=== PATIENT | female | born 2005 ===

== ENCOUNTER 2025-03-12 09:38 | Inpatient (IN) | payer OTHER ==
[~2025-03-12] VITALS: Ht 157.5 cm; Wt 95.0 kg
[2025-03-12 12:14] VITALS: BP 117/89
[2025-03-12] MEDS ORDERED: RISP2 PO (12:30)
[2025-03-12 12:32] VITALS: BP 117/89
--- NOTE | 2025-03-12 13:07 | NUR ---
UPDATE PT HAS FLAT AFFECT, AND SPEAKS W/ SOFT TONE; POVERTY OF CONTENT. PT DENIES SI, HI, AVTH AT THIS TIME. STATED THAT OVERDOSE ATTEMPT WAS D/T CHRONIC "SPINE PAIN", BUT DENIES ANY AT THIS TIME. WHEN ASKED ABOUT PT'S SUBDUED MOOD, PT STATES, "I'M FINE" PT ENDORSES LOWERED MOOD D/T NOT WANTING TO BE HERE.
[2025-03-12] MEDS ORDERED: FLU VACC TS2025-26(6MOS UP)/PF 45 MCG/0.5 ML SYRINGE IM SCH (13:35)
[2025-03-12] MEDS ORDERED: Ondansetron 4 MG SoluTab MM PRN (13:35)
[2025-03-12] MEDS ORDERED: Polyethylene Glycol 3350 17 gm PO PRN (13:35)
[2025-03-12] MEDS ORDERED: Aluminum Hydroxide 320MG/5ML 473 ML PO PRN (13:40)
--- NOTE | 2025-03-12 16:56 | NUR ---
SHIFT SUMMARY NO ACUTE EVENTS SINCE PREVIOUS NOTE. PT HAS BEEN PACING, SITTING IN DAYROOM, OR RESTING IN ROOM QUIETLY.
[2025-03-12 19:33] VITALS: BP 135/86
--- NOTE | 2025-03-13 04:52 | NUR ---
SHIFT SUMMARY: PATIENT WAS STANDING QUIETLY IN THE [place] AT THE BEGINNING OF THE SHIFT. PATIENT IS A 20 YEAR OLD WHO IDENTIFIES HE/HIM OR THEY/THEM, BORN FEMALE. HE IS HERE INVOLUNTARILY, ADMITTED ON 03/12/25 FOR SUICIDAL IDEATION WITH ATTEMPT BY OVERDOSE OF BELA. HIS HOLD IS UP 03/18/25. HE PRESENTED BLUNTED AND SHY BUT AGREED TO TALK WITH RN IN SENSORY ROOM. HE ANSWERED ASSESSMENT QUESTIONS AND ADMISSION WAS ABLE TO BE COMPLETED. SOON HE WAS DONE, HE STOOD UP SUDDENLY AND WALKED OUT OF THE ROOM, GOING TO HIS ROOM. HE DID NOT HAVE ANY EVENING MEDICATIONS, AND HE DECLINED OFFER OF SNACK AND WRAP UP GROUP, CHOOSING TO REMAIN IN BED, WHERE HE WAS NOTED TO BE RESTING WITH EYES CLOSED AND RESPIRATIONS CONFIRMED FOR THE REMAINDER OF THE SHIFT. CONTINUING TO MONITOR FOR SAFETY WITH Q15 MINUTE CHECKS.
[2025-03-13 08:08] LABS: CHOL/HDL RATIO 3.3; Cholesterol 150 mg/dL (50-200); HDL Cholesterol 45 mg/dL (>39); LDL/HDL RATIO 1.8; Low Density Lipoprotein Chol 82 mg/dL (0-110); Triglycerides 116 mg/dL (30-140); Very Low Density Lipoprot Chol 23 mg/dL (6-28)
[2025-03-13 08:50] VITALS: BP 139/103
[2025-03-13] MEDS ORDERED: Multivitamins 1 Tab PO SCH (09:00)
--- NOTE | 2025-03-13 16:46 | NUR ---
SHIFT SUMMARY PT DENIES SI, HI, AVTH AT THIS TIME. PT HAS BEEN ISOLATING AND ONLY INTERACTS W/ STAFF WHEN MAKING REQUESTS, OTHERWISE PACES, RESTS QUIETLY IN ROOM, OR IN DAYROOM. PT ATTENDED MEALS AND GROUPS. PT DURING PHONECALL TODAY FOUND OUT THEIR CAT AND HAS BEEN TEARFUL, HYDROXYZINE GIVEN PER EMAR. NO OTHER ACUTE EVENTS AT THIS TIME.
[2025-03-13 19:17] VITALS: BP 131/84
--- NOTE | 2025-03-14 04:36 | NUR ---
SHIFT SUMMARY PATIENT IN BED RESTING LISTENING TO MUSIC WITH HEADPHONE. POOR EYE CONTACT, ANSWERING QUESTIONS WITH SHORT 1-2 WORD STATEMENTS WITH FLAT AFFECT. DENIES SI, HI, OR AVTH. NEEDING A LOT OF ENCOURAGEMENT TO GET UP FOR HS MEDICATION AND SNACK, MELATONIN GIVEN FOR SLEEP WITH HS MEDICATIONS. PATIENT BACK TO BED AFTER SNACK, HEADPHONES REMOVED AT APROX 2130 FOR SLEEP. AT 0200 PATIENT UP TO NURSES DESK ASKING FOR MUSIC, PATIENT REMINDED THAT SHE CAN NOT SLEEP WITH HEADPHONES DUE TO RISK OF THEM BEING DAMAGED, PATIENT RETURNED TO ROOM AND APPEARS TO BE SLEEPING WELL WITH RESP EVEN AND UNLABORED. CONTINUE TO MONITOR Q15MIN. PRN MEDICATIONS GIVEN THIS SHIFT/ MELATONIN
[2025-03-14 08:37] VITALS: BP 121/89
--- NOTE | 2025-03-14 12:27 | NUR ---
603-W MID SHIFT SUMMARY PT WOKE EASILY FOR BREAKFAST THIS SHIFT, THEY STATED THEY SLEPT VERY WELL, SHE IS ALERT AND ORIENTED WITH LIMITED EYE CONTACT TODAY. SPEECH IS SOFT BUT UNDERSTANDABLE, POOR GROOMING. AM REPORT STATED PT HAD A SHOWER YESTERDAY BUT THAT SHE CLEARLY DID NOT WASH HER HAIR. AT 1130 PT IS IN THE SHOWER AND SHE VERBALLY STATED THAT SHE IS TO USE THE SHAMPOO AND CONDITIONER TO WASH HER HAIR. SHE IS CONSITANTLY REQUESTING TO USE THE HEADPHONES AND UNDERSTANDS SHE HAS TO ATTEND GROUPS AND SHOWER BEFORE SHE CAN GET THE HEADPHONES. SHE HAS DENIED SI/HI/AVH. PT HAS RECEIVED Q15 MIN VISUAL SAFETY CHECKS THROUGHOUT THE FIRST HALF OF THIS SHIFT, PT CARE FOR THIS RN FROM [phone].
--- NOTE | 2025-03-14 13:17 | NUR ---
ASSUMPTION OF CARE ASSUMED CARE OF PATIENT FROM [place] [id number]. THEY CURRENTLY ATTENDING GROUP. THEY HAVE NOT RECEIVED ANY PRN MEDICATIONS PRIOR IN THE SHIFT.
--- NOTE | 2025-03-14 15:46 | NUR ---
END OF SHIFT SUMMARY SINCE THIS GLYCERIN OPERATOR ASSUMED CARE AT 1300, NO PRN MEDICATIONS WERE UTILIZED. PATIENT DOES NOT SEEM TO BE IN ANY ACUTE DISTRESS. THEY HAVE BEEN COMPLIANT WITH CARE AND ATTENDED MEALS AND SOME GROUP ACTIVITIES.
[2025-03-14 19:07] VITALS: BP 145/102
--- NOTE | 2025-03-15 00:12 | NUR ---
MID-SHIFT SUMMARY 20 YEAR-OLD NON-BINARY PRESENTS WELL GROOMED. THEY ARE ALERT AND ORIENTED. THEY SPEAK IN A CLEAR VOICE AND IN A SOFT VOLUME. THEY ARE UNABLE TO MAKE EYE CONTACT AND ARE WITHDRAWN DURING CONVERSATIONS. AT THE TIME OF THEIR ASSESSMENT, THEY DESCRIBED THEIR MOOD PRETTY CHILL. THEY ALSO DENIED SI, HI, AND AVTH AT THAT TIME. THEY DID NOT ATTEND ANY COMMUNAL FUNCTIONS THIS SHIFT. THEY WERE COMPLIANT WITH CARE AND MEDICATION ADMINISTRATION. THEY RECEIVED THE FOLLOWING PRN MEDICATIONS: MELATONIN 3MG FOR SLEEP AT 2008. THEY CONTINUE TO BE MONITORED EVERY 15 MINUTES FOR WELLNESS AND SAFETY.
--- NOTE | 2025-03-15 00:13 | NUR ---
PRN NOTE PATIENT RECEIVED THE FOLLOWING PRN MEDICATIONS DURING DIRECTOR PRODUCT DEVELOPMENT: MELATONIN 3MG FOR SLEEP AT 2008.
--- NOTE | 2025-03-15 00:59 | NUR ---
Assumed care of patient at 0055. patient currently sleeping with even respirations. Will continue close monitoring every 15 minutes for safety and comfort per unit protocol.
--- NOTE | 2025-03-15 06:16 | NUR ---
NO CHANGES SINCE ASSUMPTION OF CARE AT 0055. PATIENT HAS SLEPT SINCE APPROXIMATELY 2130 UNTIL NOW. pLEASE SEE MID SHIFT SUMMARY FOR DETAILS. WILL CONTINUE CLOSE OBSERVATION EVERY 15 MINUTES FOR COMFORT AND SAFETY PER UNIT STANDARDS.
[2025-03-15 08:05] VITALS: BP 130/88
--- NOTE | 2025-03-15 17:13 | NUR ---
SHIFT SUMMARY PT A/O X2-3 AND COOPERATIVE WITH CARE. HE IS NON-BINARY AND USES HE/HIM PRONOUNS. HE DENIES SI, HI, AVTH. PT'S AFFECT IS BLUNT AND THEIR SPEECH IS QUIET. PT IS GUARDED AND GIVEN SHORT ANSWERS TO QUESTIONS. PT ENCOURAGED TO SHOWER BUT UNCLEAR IF WASHING HAIR WHEN HE SHOWERS. HAIR APPEARS UNWASHED AND UNKEMPT. HE ATTENDED SOME GROUPS AND MOST MEALS, BUT NOT ALL. PT LIKES TO USE THE HEADPHONES OFTEN, A COPING STRATEGY.
--- NOTE | 2025-03-16 04:29 | NUR ---
Alert and oriented times three with a very quiet and flat affect. She paced the halls with the headphones on, had a snack with her peers. Then after receiving her Risperdone and a PRN Melatonin, she went off to bed and slept well until coming to the desk at 0300 and asking for another Melatonin. This nurse told her it was too late for another sleeping pill, and she went back to bed and fell back to sleep. During evening assessment, patient denied SI,HI and AVTH. Will continue close monitoring every 15 minutes for safety and comfort per unit protocol
[2025-03-16 07:38] VITALS: BP 140/89
--- NOTE | 2025-03-16 17:42 | NUR ---
SHIFT SUMMARY PT DENIES SI, HI, AVTH AT THIS TIME. FLAT/BLUNTED AFFECT AND GUARDED. PT IS ABLE TO MAKE NEEDS KNOWN. PT T/O DAY HAS BEEN PACING THE GASPAR, SITTING IN ROOM, OR IN DAYROOM W/ HEADPHONES. ATTENDED GROUPS AND MEALS. PCI FROM [facility] CALLED FOR UPDATE ON PT AND INFORMED THIS RN THAT PT HAD TOLD MOTHER THAT SHE WAS HAVING AUDITORY HALLUCINATIONS AT TIME OF ATTEMPT BEFORE ADMIT WHICH CORRELATES W/ DR MENSAH NOTE. FOR THIS RN PT STATED THAT IT WAS D/T "SPINE PAIN" AND THAT SHE DOES NOT HEAR VOICES AT THIS TIME.
--- NOTE | 2025-03-17 04:31 | NUR ---
SHIFT SUMMARY: PATIENT IS A 20 YEAR OLD NON-BINARY (BORN FEMALE) PATIENT ADMITTED FOR SI WITH OVERDOSE. HE/HIM ARE THEIR PRONOUNS. HE PRESENTS DECENTLY GROOMED, HE HAD HELP WITH HIS HAIR DURING DAY SHIFT. HE SPEAKS IN A SOFT, BARELY AUDIBLE VOICE, AND MAKES LITTLE EYE CONTACT. HE DESCRIBED HIS MOOD "OKAY" AND DENIED SI, HI AND AVTH. HE WANTED TO GO TO BED EARLY, AND TOOK HIS MEDICATIONS RATHER THAN GO TO SNACK AND WRAP UP GROUP. HE RECEIVED EDUCATION REGARDING EVENING RISPERDAL. HE DID NOT REQUEST ANY PRN MEDICATIONS THIS SHIFT, EXCEPT FOR WANTING A MELATONIN AT 0400, WHEN IT WAS TOO LATE TO GIVE IT. HE WAS ADVISED TO TRY TO GO TO BED AND SEE IF HE COULD SLEEP, AND IT APPEARED TO BE EFFECTIVE. HE CONTINUES TO BE MONITORED FOR SAFETY WITH Q15 MINUTE CHECKS.
[2025-03-17] MEDS ORDERED: RISP1 PO (12:04)
--- NOTE | 2025-03-17 17:28 | NUR ---
SHIFT SUMMARY NO ACUTE EVENTS TODAY. PT DENIES SI, HI, VTH. INITIALLY DENIED AUDITORY HALLUCINATIONS, BUT WHEN PROBED ABOUT PT TELLING DOCTOR ABOUT HEARING VOICES, PT ENDORSED HEARING THEM; DENIES COMMAND HALLUCINATIONS AND STATES "THEY'RE TRYING TO GET MY ATTENTION" AND STATED THAT THEY HAVE BEEN "FADING" SINCE BEING HERE.
[2025-03-17 19:09] VITALS: BP 125/75
--- NOTE | 2025-03-17 20:29 | NUR ---
PRN MEDICATION ADMINISTRATION: PATIENT REQUESTED AND WAS GIVEN MELATONIN AT 2012 FOR C/O INSOMNIA. WILL CONTINUE TO MONITOR FOR EFFECTIVENESS AND FOR SAFETY WITH Q15 MINUTE CHECKS.
--- NOTE | 2025-03-18 04:53 | NUR ---
PATIENT IS A 20 YEAR OLD NON-BINARY PERSON (BORN FEMALE) WITH PRONOUNS HE/HIM, WHO GOES BY THE NAME "RUBÉN". HE WAS ADMITTED TO THE [facility] ON 03/12/25 FOR SI, AUTISM AND PSYCHOSIS. HE PRESENTED FAIRLY GROOMED, A AND O X 4, A QUIET TONE OF VOICE AND APPROPRIATE EYE CONTACT. HE DESCRIBED HIS MOOD "HOPEFUL". HE DENIED SI, HI AND AVTH. HE WAS MUCH MORE ABLE TO MAKE NEEDS KNOWN THIS SHIFT AND OFTEN SPOKE IN COMPOUND, COMPLEX SENTENCES RATHER THAN ONE OR TWO WORDS. HE ATTENDED SNACK AND WRAP UP GROUP, AND WAS COMPLIANT WITH EVENING MEDICATION ADMINISTRATION. HE REQUESTED AND WAS GIVEN MELATONIN AT 2012 FOR C/O INSOMNIA, WHICH WAS EFFECTIVE EVIDENCED BY PATIENT GOING TO BED AND NOTED TO BE IN THERE RESTING QUIETLY WITH EYES CLOSED AND RESPIRATIONS CONFIRMED FOR THE REMAINDER OF THE SHIFT. CONTINUING TO MONITOR FOR SAFETY WITH Q15 MINUTE CHECKS.
[2025-03-18 07:22] VITALS: BP 108/78
--- NOTE | 2025-03-18 08:51 | NUR ---
IMPORTANT DISCHARGE INFORMATION PATIENT TO DISCHARGE HOME TODAY. SHE WILL BE GOING BACK TO HER MOTHER'S (JO) [phone]. [facility] FOR TRANSPORT HOME . TRANSPORTATION TO PICK HER UP AROUND 2PM. ALL PARTIES VERBALIZE AN UNDERSTANDING. FOLLOW UP WITH NEW PCP DR. MARTINEZ AT THE [facility] ON 03/30/25 2:30PM FOLLOW UP WITH [facility]. A REFERRAL PLACED FOR [facility] = EARLY ASSESSMENT AND SUPPORTIVE SERVICES. PHARMACY: [facility] FAX NUMBER
--- NOTE | 2025-03-18 13:36 | NUR ---
Discharge note Patient was discharged to home via taxi with medical transport. Discharge paperwork, education, medications and safety plan were reviewed with the patient before discharge. All belongings were returned to the patient. The patient was given a hydroxyzine to help with anxiety before discharge. She denies having any thoughts of suicide, self harm and is excited to be leaving today.
== END 2025-03-18 13:30 | disposition home or self-care (01) | DRG 884 ==
LOC: BHU 09:38
PROVIDERS: ADMIT Psychiatry & Neurology Psychiatry
DX: F84.0 Autistic disorder (principal); R45.851 Suicidal ideations; F29 Unspecified psychosis not due to a substance or known physiological condition; Z28.21 Immunization not carried out because of patient refusal
CPT/HCPCS: 36415; 80061; 83036; A9270